=== PATIENT | male | born 1935 | race Caucasian/White ===

== ENCOUNTER → 2018-11-29 | Outpatient (CLI) | payer MEDICARE ==
--- NOTE | 2018-12-01 15:13 | P.ARTDOP ---
Arterial Doppler LOWER EXTREMITY ARTERIAL DOPPLER: DATE OF SERVICE: 11/29/2018 Reason for study: Bilateral leg pain. Doppler waveforms: Multiphasic bilaterally throughout. Pulse volume recording: []. Pressure gradients: Greater than 1 bilaterally. Ankle-brachial indices: None. Toe pressures: [] on the right, [] on the left Impression: Normal study.
== END | disposition home or self-care (01) ==
LOC: RADUSWWP 11:57
PROVIDERS: ATTEND Family Medicine
DX: I70.213 Atherosclerosis of native arteries of extremities with intermittent claudication, bilateral legs (principal)
CPT/HCPCS: 93922

== ENCOUNTER → 2019-02-17 | Outpatient (CLI) | payer MEDICARE ==
--- NOTE | 2019-02-17 14:54 | US ---
EXAMINATION TYPE: US venous doppler duplex LE DATE OF EXAM: 02/17/2019 2:01 PM COMPARISON: NONE CLINICAL HISTORY: R60.0 Edema. Bilateral edema- Patient states it is getting better. No pain at this time. No redness. Patient is no longer on blood thinners. SIDE PERFORMED: Bilateral TECHNIQUE: The lower extremity deep venous system is examined utilizing real time linear array sonog yessenia with graded compression, doppler sonography and color-flow sonography. VESSELS IMAGED: External Iliac Vein (EIV) Common Femoral Vein Deep Femoral Vein Greater Saphenous Vein * Femoral Vein Popliteal Vein Small Saphenous Vein * Proximal Calf Veins (* superficial vessels) Grayscale, color doppler, spectral doppler imaging performed of the deep veins of the lower extremiti es. There is normal flow, compressibility, vascular waveforms. Right Leg: Negative for DVT Left Leg: Negative for DVT IMPRESSION: No sonographic evidence of deep venous thrombosis in either lower extremity.
== END | disposition home or self-care (01) ==
LOC: RADUSWWP 13:21
PROVIDERS: ATTEND Family Medicine
DX: R60.0 Localized edema (principal)
CPT/HCPCS: 93970

== ENCOUNTER 2021-03-14 12:34 | Inpatient (IN) | payer MEDICARE ==
--- NOTE | 2021-03-14 12:53 | ED ---
General Adult HPI - General Stated complaint: Fall, Altered Mental Time Seen by Provider: 03/14/21 12:35 Source: patient, EMS, RN notes reviewed, old records reviewed Mode of arrival: EMS Limitations: altered mental status - History of Present Illness Initial comments: 85-year-old male with altered mental status, fall from bed which occurred at 4 AM this morning. History is obtained from the paramedics. History is limited from the patient who is able to state his name and date of but is unable to give a significant amount of history. Patient is on blood thinners. He had a fall without known head trauma. He complained of some right knee pain. Aside from this the patient has no other complaints. This occurred at 4 AM and he presented for evaluation at approximately 12:30 PM. - Related Data Home Medications Medication Instructions Recorded Confirmed Atorvastatin [Lipitor] 10 mg PO HS 03/14/21 03/14/21 Buprenorphine [Butrans 20 MCG/HOUR] 1 patch TRANSDERM SA 03/14/21 03/14/21 Cholecalciferol [Vitamin D3 (25 50 mcg PO DAILY 03/14/21 03/14/21 Mcg = 1000 Iu)] Cyanocobalamin (Vitamin B-12) 1,000 mcg PO DAILY 03/14/21 03/14/21 [Vitamin B-12] Labetalol [Trandate] 100 mg PO BID 03/14/21 03/14/21 Lisinopril [Zestril] 10 mg PO DAILY 03/14/21 03/14/21 Lotrimin Jock Itch [place] 1 applic TOPICAL DAILY PRN 03/14/21 03/14/21 Naloxone HCl [Narcan] 4 mg NASAL DAILY PRN 03/14/21 03/14/21 Ondansetron [Zofran ODT] 4 mg PO BID PRN 03/14/21 03/14/21 Prostagenix 1 cap PO TID 03/14/21 03/14/21 Rivaroxaban [Xarelto] 2.5 mg PO AC-BID 03/14/21 03/14/21 Tamsulosin HCl [Flomax] 0.8 mg PO HS 03/14/21 03/14/21 cloNIDine HCL 0.1 mg PO AC-BID 03/14/21 03/14/21 oxyCODONE HCL [oxyCODONE HCL (IR)] 20 mg PO QID 03/14/21 03/14/21 Allergies Allergy/AdvReac Type Severity Reaction Status Date / Time No Known Allergies Allergy Verified 03/14/21 17:47 Review of Systems ROS Statement: Those systems with pertinent positive or pertinent negative responses have been documented in the HPI. ROS Other: All systems not noted in ROS Statement are negative. General Exam Limitations: altered mental status General appearance: alert Head exam: Present: atraumatic, normocephalic Eye exam: Present: normal appearance, PERRL ENT exam: Present: mucous membranes dry (Dried blood around the lips.) Neck exam: Present: normal inspection. Absent: tenderness, meningismus Respiratory exam: Present: normal lung sounds bilaterally. Absent: respiratory distress, wheezes Cardiovascular Exam: Present: normal rhythm, tachycardia GI/Abdominal exam: Present: soft. Absent: distended, tenderness, guarding Extremities exam: Present: tenderness (Right knee, some anterior ecchymosis, tenderness to palpation, no gross deformity.), pedal edema Neurological exam: Present: alert, motor sensory deficit (Patient does have some difficulty answering questions, uncertain if this is due to his mental status or expressive aphasia.). Absent: oriented X3 (2) Skin exam: Present: warm, dry, intact. Absent: cyanosis, diaphoretic Course Vital Signs 03/14/21 03/14/21 03/14/21 12:38 15:11 17:00 Temperature 98.9 F Pulse Rate 94 68 94 Respiratory 20 16 18 Rate Blood Pressure 198/112 164/104 205/107 O2 Sat by Pulse 94 L 93 L 92 L Oximetry 03/14/21 17:36 Temperature Pulse Rate 101 H Respiratory 20 Rate Blood Pressure 154/98 O2 Sat by Pulse 96 Oximetry EKG Findings - EKG Comments: EKG Findings:: EKG: Sinus rhythm with PVC, T-wave inversion in V2 and V3, no ST segment elevation, rate of 97, CT interval 126, QRS duration 100, QTC 434. Medical Decision Making - Medical Decision Making 85-year-old male presents status post fall. The exact details are known. The patient himself is alert and oriented 2. He's having some pain in the left hip upon arrival as well as the right knee. Plain films as well as CT imaging of the brain and CT angiography is ordered initially. Patient is a DO NOT RESUSCITATE CT brain negative for intracranial hemorrhage. Accommodation of x-rays and CTs findings significant bony abnormalities including left proximal femur fracture, right tibial plateau fracture, right acetabular fracture. There is rotational deformity on angiography of the neck and week on of the cervical spine is pending. I had discussed these findings with the patient's who is francesco celaya if she would agree with surgery at this time are not. I discussed case at length with Dr. Plasencia and Dr. Hayes covering for orthopedics. Patient's is aware that the patient has multiple injuries in this may be a terminal event for this patient. She agrees to discuss any surgical options with orthopedics tomorrow and is aware that there will be no operative management at this time for the injuries to the right lower extremity. Regarding the patient's laboratory testing does have a leukocytosis with no source infection found at this time. We'll monitor for signs of infection. He has a hypokalemia which is replaced. He has an elevated troponin this will be trended. He is anticoagulated at baseline and has no active chest pain. Both internal medicine and cardiology will be placed on consult for possible surgical clearance. - Lab Data Result diagrams: 03/14/21 12:48 03/14/21 12:48 Lab Results 03/14/21 03/14/21 03/14/21 Range/Units 12:48 12:48 12:48 WBC 22.3 H (3.8-10.6) k/uL RBC 3.43 L (4.30-5.90) m/uL Hgb 11.2 L (13.0-17.5) gm/dL Hct 33.3 L (39.0-53.0) % MCV 97.0 (80.0-100.0) fL MCH 32.6 (25.0-35.0) pg MCHC 33.6 (31.0-37.0) g/dL RDW 13.0 (11.5-15.5) % Plt Count 180 (150-450) k/uL MPV 7.9 Neutrophils % 94 % Lymphocytes % 2 % Monocytes % 3 % Eosinophils % 1 % Basophils % 0 % Neutrophils # 20.9 H (1.3-7.7) k/uL Lymphocytes # 0.4 L (1.0-4.8) k/uL Monocytes # 0.7 (0-1.0) k/uL Eosinophils # 0.2 (0-0.7) k/uL Basophils # 0.0 (0-0.2) k/uL PT 11.9 (9.0-12.0) sec INR 1.1 (<1.2) APTT 24.4 (22.0-30.0) sec Sodium 133 L (137-145) mmol/L Potassium 3.1 L (3.5-5.1) mmol/L Chloride 104 (98-107) mmol/L Carbon Dioxide 22 (22-30) mmol/L Anion Gap 7 mmol/L BUN 16 (9-20) mg/dL Creatinine 0.47 L (0.66-1.25) mg/dL Est GFR (CKD-EPI)AfAm >90 (>60 ml/min/1.73 sqM) Est GFR (CKD-EPI)NonAf >90 (>60 ml/min/1.73 sqM) Glucose 176 H (74-99) mg/dL Calcium 8.8 (8.4-10.2) mg/dL Total Bilirubin 1.5 H (0.2-1.3) mg/dL AST 37 (17-59) U/L ALT 28 (4-49) U/L Alkaline Phosphatase 82 (38-126) U/L Creatine Kinase 294 H (55-170) U/L Troponin I (0.000-0.034) ng/mL Total Protein 5.8 L (6.3-8.2) g/dL Albumin 3.3 L (3.5-5.0) g/dL 03/14/21 Range/Units 12:48 WBC (3.8-10.6) k/uL RBC (4.30-5.90) m/uL Hgb (13.0-17.5) gm/dL Hct (39.0-53.0) % MCV (80.0-100.0) fL MCH (25.0-35.0) pg MCHC (31.0-37.0) g/dL RDW (11.5-15.5) % Plt Count (150-450) k/uL MPV Neutrophils % % Lymphocytes % % Monocytes % % Eosinophils % % Basophils % % Neutrophils # (1.3-7.7) k/uL Lymphocytes # (1.0-4.8) k/uL Monocytes # (0-1.0) k/uL Eosinophils # (0-0.7) k/uL Basophils # (0-0.2) k/uL PT (9.0-12.0) sec INR (<1.2) APTT (22.0-30.0) sec Sodium (137-145) mmol/L Potassium (3.5-5.1) mmol/L Chloride (98-107) mmol/L Carbon Dioxide (22-30) mmol/L Anion Gap mmol/L BUN (9-20) mg/dL Creatinine (0.66-1.25) mg/dL Est GFR (CKD-EPI)AfAm (>60 ml/min/1.73 sqM) Est GFR (CKD-EPI)NonAf (>60 ml/min/1.73 sqM) Glucose (74-99) mg/dL Calcium (8.4-10.2) mg/dL Total Bilirubin (0.2-1.3) mg/dL AST (17-59) U/L ALT (4-49) U/L Alkaline Phosphatase (38-126) U/L Creatine Kinase (55-170) U/L Troponin I 1.060 H* (0.000-0.034) ng/mL Total Protein (6.3-8.2) g/dL Albumin (3.5-5.0) g/dL Critical Care Time Critical Care Time: Yes Total Critical Care Time: 35 Disposition Clinical Impression: Fall, AMS (altered mental status), Elevated troponin, Acetabular fracture, Hip fracture, Tibial plateau fracture, right Disposition: ADMITTED IP TO THIS [facility] Condition: Stable Is patient prescribed a controlled substance at d/c from ED?: No Referrals: Jose Irwin MD [Primary Care Provider] - 1-2 days Decision to Admit Reason: Admit from EC Decision Date: 03/14/21 Decision Time: 18:36
[2021-03-14 13:02] LABS: Basophils % (A) 0 %; Eosinophils # (A) 0.2 k/uL (0-0.7); Eosinophils % (A) 1 %; HCT 33.3 % (39.0-53.0); HGB 11.2 gm/dL (13.0-17.5); Lymphocytes # (A) 0.4 k/uL (1.0-4.8); Lymphocytes % (A) 2 %; MCH 32.6 pg (25.0-35.0); MCHC 33.6 g/dL (31.0-37.0); Mean Platelet Volume 7.9; Monocytes # (A) 0.7 k/uL (0-1.0); Monocytes % (A) 3 %; Neutrophils # (A) 20.9 k/uL (1.3-7.7); Neutrophils % (A) 94 %; Platelet Count 180 k/uL (150-450); RBC 3.43 m/uL (4.30-5.90); WBC 22.3 k/uL (3.8-10.6)
[2021-03-14 13:15] LABS: ALT 28 U/L (4-49); AST 37 U/L (17-59); African American GFR (CKD) >90 (>60 ml/min/1.73 sqM); Albumin 3.3 g/dL (3.5-5.0); Alkaline Phosphatase 82 U/L (38-126); Anion Gap 7 mmol/L; Blood Urea Nitrogen 16 mg/dL (9-20); Calcium 8.8 mg/dL (8.4-10.2); Carbon Dioxide 22 mmol/L (22-30); Chloride 104 mmol/L (98-107); Creatine Kinase 294 U/L (55-170); Glucose 176 mg/dL (74-99); Non-African American GFR(CKD) >90 (>60 ml/min/1.73 sqM); Potassium 3.1 mmol/L (3.5-5.1); Sodium 133 mmol/L (137-145); Total Bilirubin 1.5 mg/dL (0.2-1.3); Total Protein 5.8 g/dL (6.3-8.2)
[2021-03-14 13:34] LABS: INR 1.1 (<1.2); Partial Thromboplastin Time 24.4 sec (22.0-30.0); Prothrombin Time 11.9 sec (9.0-12.0)
[2021-03-14] MEDS ORDERED: SODIUM CHLORIDE 0.9% 500 ML 500 ML IV ONE (14:32)
[2021-03-14] MEDS ORDERED: HYDROmorphone 0.5 MG/0.5 ML SYRINGE IVP STA ×2 (14:32→15:55)
--- NOTE | 2021-03-14 14:56 | XR ---
EXAMINATION TYPE: XR chest 1V portable DATE OF EXAM: 03/14/2021 COMPARISON: NONE HISTORY: 85 years Male. STUDY INDICATION GIVEN: altered mental status . TECHNIQUE: AP semiupright chest radiograph IMPRESSION: There are patchy bibasilar right greater than left opacities which may be reflective of atelectasis o r multifocal pneumonia. There is a 1.5 cm soft tissue density in the right upper hemithorax concerning for lung nodule. There is a moderate-sized right pleural effusion. No left-sided pleural effusion. No pneumothorax. There is mild cardiomegaly and mild pulmonary vascular congestion/edema. Generalized osteopenia is noted.
--- NOTE | 2021-03-14 15:00 | XR ---
EXAMINATION TYPE: XR pelvis AP view DATE OF EXAM: 03/14/2021 COMPARISON: NONE HISTORY: 85 years Male. STUDY INDICATION GIVEN: fall . TECHNIQUE: Single frontal radiograph of the pelvis IMPRESSION: There is an acute displaced fracture of the proximal left femur with proximal overlap. Severe osteopenia which limits evaluation for nondisplaced fracture. Irregularity involving the right acetabulum/inferior right pubic ramus, could be related to projectio n cannot exclude nondisplaced fracture. No hip joint dislocation. Residual contrast seen in the right ureter.
--- NOTE | 2021-03-14 15:03 | XR ---
EXAMINATION TYPE: XR knee limited RT DATE OF EXAM: 03/14/2021 COMPARISON: NONE HISTORY: 85 years Male. STUDY INDICATION GIVEN: fall . TECHNIQUE: Frontal and lateral radiographs of the right knee IMPRESSION: Advanced osteopenia limits evaluation for nondisplaced fracture. The positioning of the knee joint is also limiting factor. There is an apparent fracture involving the proximal fibular shaft. Irregularity of the lateral tibial plateau is noted. Cannot exclude fracture. Advanced osteoarthrosis is seen. There is a small knee joint effusion and diffuse soft tissue swelling of the knee. Osseous fragment in the posterior aspect of the knee joint could represent a loose body.
--- NOTE | 2021-03-14 15:04 | XR ---
EXAMINATION TYPE: XR Hip Limited LT DATE OF EXAM: 03/14/2021 COMPARISON: NONE HISTORY: 85 years Male. STUDY INDICATION GIVEN: fall . TECHNIQUE: AP radiograph of the left hip joint IMPRESSION: Acute slightly comminuted fracture of the proximal left femur. The distal fragment is superiorly disl ocated. Mild overlying soft tissue swelling. No hip joint dislocation. Mild left hip joint space narr owing. Advanced osteopenia.
--- NOTE | 2021-03-14 16:41 | XR ---
EXAMINATION TYPE: XR Hip Complete LT DATE OF EXAM: 03/14/2021 COMPARISON: Left hip and pelvic radiographs performed on the same day HISTORY: 85 years Male. STUDY INDICATION GIVEN: fALL . TECHNIQUE: AP and crosstable lateral radiographs of the left hip joint IMPRESSION: Acute slightly comminuted fracture of the proximal left femur. The distal femur is displaced proximal ly and laterally. Significant soft tissue swelling is seen around the left proximal hip joint. Osseou s structures are significantly osteopenic. Contrast is seen in the urinary bladder.
[2021-03-14] MEDS ORDERED: hydrALAZINE HCL 20 MG/ML 1 ML VIAL IVP STA (16:57)
--- NOTE | 2021-03-14 16:59 | CT ---
EXAMINATION TYPE: CT brain wo con for TPA DATE OF EXAM: 03/14/2021 COMPARISON: None HISTORY: AMS TECHNIQUE: CT scan of the head without contrast CT DLP: 1103 mGycm Automated exposure control for dose reduction was used. FINDINGS: No acute intracranial hemorrhage, midline shift or mass effect. Quinn-white matter differentiation is preserved. Linear area of low attenuation in the right frontal lobe favored to be related to artifact from adjac ent bone. Patchy low-attenuation the deep white matter and periventricular region likely on the basis of chroni c microvascular ischemic changes. Prominence of the CSF spaces and ventricles likely related to brain volume loss. No air-fluid levels seen in the paranasal sinuses or mastoid air cells. No acute osseous, orbital or soft tissue abnormality seen. IMPRESSION: NO ACUTE INTRACRANIAL HEMORRHAGE MIDLINE SHIFT OR MASS EFFECT. LINEAR AREA OF LOW-ATTENUATION THE RIGHT FRONTAL LOBE FAVORED TO BE RELATED TO ARTIFACT FROM ADJACENT BONE. CHRONIC MICROVASCULAR ISCHEMIC CHANGES AND BRAIN VOLUME.
--- NOTE | 2021-03-14 17:40 | CT ---
EXAMINATION TYPE: CT angio head neck DATE OF EXAM: 03/14/2021 HISTORY: AMS COMPARISON: None CT DLP: 456.2 mGycm. Automated Exposure Control for Dose Reduction was Utilized. TECHNIQUE: CTA scan of the neck is performed with IV Contrast, patient injected with 65 mL of Isovue 370, axial images are obtained, coronal and sagittal reformatted images are reviewed. 3D reconstruct ed images are created on an independent workstation and reviewed. FINDINGS: Carotid/Vascular Structures: Atherosclerotic calcifications are seen in the arch of the aorta. Atherosclerotic plaques are seen a t the region of the bilateral subclavian arteries. There is mild bilateral narrowing of the bilateral carotid bifurcation secondary to calcific plaques. The external carotid arteries are patent. Renal c arotid arteries are patent. There is a dominant right vertebral artery. Both vertebral arteries are patent. The basilar artery is patent. ACAs are patent. M1 segments of both MCAs are patent. M2 and M3 segments appear symmetric. There is mild narrowing of the distal left M1 segment. There is mild narrowing of the proximal right M1 segment Both healthcare consulting manager are patent. Right [employer] has a origin. Deep venous structures of the brain are patent. No cervical lymphadenopathy seen. Airways are symmetric. There is a centrally calcified nodule measuring centimeters. There is trace right effusion loculated in the right fissure. There is a rotation deformity at C1-2. There are degenerative changes in the cervical spine. Evaluation of the cervical spine suboptimal. IMPRESSION: 1. No vascular occlusion aneurysm or dissection seen. Clinical correlation with symptomatology recomm ended. 2. Mild narrowing of the bilateral M1 segments of the MCA. 3. Mild narrowing at the bilateral common carotid bifurcation. 4. C1 2 rotational deformity may be seen with rotatory subluxation. MRI of the cervical spine may be beneficial to rule out ligamentous injury. 5. Cannot exclude C-spine fracture due to technique. 6. Centrally calcified 1.2 cm nodule in the right upper lobe. 7. Trace right pleural effusion. 8. Focal area of low attenuation in the right frontal lobe again seen may be related to artifact vers us chronic microvascular ischemic changes. Clinical correlation recommended NASCET criteria was used in interpretation of this exam?
--- NOTE | 2021-03-14 17:56 | CT ---
EXAMINATION TYPE: CT knee RT wo con DATE OF EXAM: 03/14/2021 COMPARISON: None HISTORY: Fall. TECHNIQUE: CT scan of the right knee without contrast. Three-D reconstruction obtained CT DLP: 147.8 mGycm Automated exposure control for dose reduction was used. FINDINGS: There is advanced osteopenia. There is an acute depression fracture of the lateral tibial plateau the into the knee joint. Fracture fragment is slightly displaced laterally. There is an acute fracture of the superior aspect of the fibula which does not extend into the tibia fibular joint. Tricompartmental osteoarthrosis air severe. There is a large knee joint effusion which contains a few droplets of fat.. There are loose bodies in the posterior knee joint. Diffuse soft tissue swelling around the knee joint. There is chondrocalcinosis in the knee joint. IMPRESSION: 1. ACUTE DEPRESSION FRACTURE OF THE LATERAL TIBIAL PLATEAU WITH SLIGHT LATERAL DISPLACEMENT. 2. ACUTE FRACTURE OF THE PROXIMAL FIBULA WITHOUT EXTENSION INTO THE TIBIOFIBULAR JOINT. 3. FAT-CONTAINING LARGE KNEE JOINT EFFUSION CONSISTENT WITH INTRA-ARTICULAR EXTENSION OF TIBIAL PLATE AU FRACTURE. 4. ADVANCED TRICOMPARTMENTAL OSTEOARTHROSIS. 5. DIFFUSE SOFT TISSUE SWELLING AROUND THE KNEE JOINT.
[2021-03-14] MEDS ORDERED: ACETAMINOPHEN TAB 325 MG TAB PO PRN (17:58)
[2021-03-14] MEDS ORDERED: NALOXONE 0.4 MG/ML 1 ML VIAL IV PRN (17:58)
--- NOTE | 2021-03-14 18:03 | CT ---
EXAMINATION TYPE: CT hip LT wo con DATE OF EXAM: 03/14/2021 COMPARISON: None HISTORY: Fall. TECHNIQUE: CT scan of the left hip joint without contrast CT DLP: 448 mGycm Automated exposure control for dose reduction was used. FINDINGS: There is advanced osteopenia. There is an acute left femoral neck comminuted fracture. The distal femur is dislocated anteriorly an d superiorly and overlaps the proximal left femur. Smaller osseous fragments are seen anteriorly and medially to the femoral neck. The left hip joint is intact. There is an acute slightly displaced comminuted fracture of the right acetabulum. Fracture line exten ds into the right ischium. The pubic symphysis is maintained. Fluid is seen in the right side of the pelvis adjacent to the right acetabulum. Right femoral head is situated within the right acetabulum. Soft tissue swelling in the proximal left thigh. Residual contrast is seen in the urinary bladder. There is large amount of stool in the sigmoid and r ectum. IMPRESSION: 1 ACUTE DISPLACED COMMINUTED LEFT FEMORAL NECK FRACTURE. 2. ACUTE SLIGHTLY DISPLACED COMMINUTED FRACTURE OF THE RIGHT ACETABULUM EXTENDING SLIGHTLY INTO THE R IGHT ISCHIUM. 3. NO HIP JOINT DISLOCATION. 4. RIGHT LOWER PELVIC FLUID IS SEEN IN ASSOCIATION WITH A RIGHT ACETABULAR FRACTURE.
--- NOTE | 2021-03-14 19:02 | CT ---
EXAMINATION TYPE: CT cervical spine w con DATE OF EXAM: 03/14/2021 COMPARISON: None HISTORY: Fall TECHNIQUE: CT scan of the cervical spine performed without contrast Automated exposure control for dose reduction was used. FINDINGS: Advanced bony demineralization is seen throughout the osseous structures. There is mild rotational deformity at the C1 -2 access. Left lateral process of C2 is displaced later ally by about 8 mm and anteriorly by about 5 mm. A compression fracture deformity is seen in the upper endplate of T6. No retropulsed fragments seen. The atlantooccipital joint is maintained as seen on the noncontrast CT head performed on the same day but not included on these image reconstructions. Multilevel narrowing of the intervertebral spaces, disc osteophyte complexes and uncovertebral facet joint arthropathy are noted throughout the cervical and upper thoracic spine. IMPRESSION: 1. C1-2 ROTATION DEFORMITY AND DISPLACEMENT OF THE LEFT LATERAL PROCESS OF C2 LATERALLY BY 8 MM AND A NTERIORLY BY 5 MM. CONCERNING FOR LIGAMENTOUS INJURY. 2. COMPRESSION FRACTURE DEFORMITY OF T6.
[2021-03-14] MEDS: POTASSIUM CHLORIDE 10 MEQ in WATER FOR INJECTION 1 100ML.BAG IVPB SCH ×4 (19:19→22:45)
--- NOTE | 2021-03-15 00:02 | P.CONS ---
History of Present Illness - Reason for Consult Consult date: 03/14/21 Medical evaluation Requesting physician: John Hayes - Chief Complaint Fall - History of Present Illness 85-year-old male with multiple comorbidities however patient is currently confused unable to provide any meaningful history History obtained by reviewing records from the ER seems like patient has sustained a fall off his bed this morning, resulting in pain and aches over his hip and knee for which she was brought to the hospital by EMS for evaluation no report of head injury however patient is on blood thinners and antiplatelets. No further history is obtainable at this time CT of the brain Imaging in the ED showed no acute intracranial pathology. Otherwise imaging did reveal right tibial plateau fracture, right acetabular fracture, left hip fracture Family made the patient DO NOT RESUSCITATE and they are aware that patient is having multiple injuries and he might not be a good surgical candidate will await further recommendations from surgical team Patient also found to have elevated troponin C denies any chest pain or trouble breathing patient does have cardiac history. Again patient unable to provide any meaningful history at this time Review of Systems ROS unobtainable: due to mental status Past Medical History Past Medical History: Unable to Obtain Past Surgical History: Unable to Obtain Past Anesthesia/Blood Transfusion Reactions: Unable to Obtain Past Psychological History: Unable to Obtain - Past Family History Family Family Medical History: Unable to Obtain Medications and Allergies Home Medications Medication Instructions Recorded Confirmed Type Atorvastatin [Lipitor] 10 mg PO HS 03/14/21 03/14/21 History Buprenorphine [Butrans 20 MCG/HOUR] 1 patch TRANSDERM SA 03/14/21 03/14/21 History Cholecalciferol [Vitamin D3 (25 50 mcg PO DAILY 03/14/21 03/14/21 History Mcg = 1000 Iu)] Cyanocobalamin (Vitamin B-12) 1,000 mcg PO DAILY 03/14/21 03/14/21 History [Vitamin B-12] Labetalol [Trandate] 100 mg PO BID 03/14/21 03/14/21 History Lisinopril [Zestril] 10 mg PO DAILY 03/14/21 03/14/21 History Lotrimin Jock Itch [place] 1 applic TOPICAL DAILY PRN 03/14/21 03/14/21 History Naloxone HCl [Narcan] 4 mg NASAL DAILY PRN 03/14/21 03/14/21 History Ondansetron [Zofran ODT] 4 mg PO BID PRN 03/14/21 03/14/21 History Prostagenix 1 cap PO TID 03/14/21 03/14/21 History Rivaroxaban [Xarelto] 2.5 mg PO AC-BID 03/14/21 03/14/21 History Tamsulosin HCl [Flomax] 0.8 mg PO HS 03/14/21 03/14/21 History cloNIDine HCL 0.1 mg PO AC-BID 03/14/21 03/14/21 History oxyCODONE HCL [oxyCODONE HCL (IR)] 20 mg PO QID 03/14/21 03/14/21 History Allergies Allergy/AdvReac Type Severity Reaction Status Date / Time No Known Allergies Allergy Verified 03/14/21 17:47 Physical Exam Vitals: Vital Signs Temp Pulse Resp BP Pulse Ox 03/14/21 23:06 107 H 16 168/99 96 03/14/21 20:12 105 H 17 154/98 100 03/14/21 17:36 101 H 20 154/98 96 03/14/21 17:00 94 18 205/107 92 L 03/14/21 15:11 68 16 164/104 93 L 03/14/21 12:38 98.9 F 94 20 198/112 94 L Intake and Output 03/14/21 03/14/21 03/15/21 14:59 22:59 06:59 Output Total 300 Balance -300 Output: Urine 300 Uretheral (Levy) 300 Other: Weight 68.039 kg Constitutional: No acute distress, cooperative, confused Eyes: Anicteric sclerae, moist conjunctiva, Pupils equal round reactive to light ENMT: Bruising over the left forehead dried blood around lips Oropharynx clear, no erythema, or exudates Neck: Supple, no masses, or JVD No carotid bruits No thyromegaly Lungs: Clear to auscultation Clear to percussion Normal respiratory effort, no accessory muscle use Cardiovascular: Heart regular in rate and rhythm, No murmurs, gallops, or rubs No peripheral edema Abdominal: Soft Nontender, no guarding, rebound or rigidity Abdomen moving with respiration Normoactive bowel sounds No hepatomegaly, No splenomegaly No palpable mass No abdominal wall hernia noted Levy catheter in place with blood tinged urine Skin: Bruising and ecchymosis over the left upper chest anteriorly, no open wounds or cuts Extremities: Internally rotated left lower extremity No digital cyanosis No clubbing Pedal pulses intact and symmetrical Radial pulses intact and symmetrical No calf tenderness Psychiatric: Alert and oriented to person only Patient seems to be confused unable to provide any meaningful history Neuro Muscles Strength 4/5 in bilateral upper extremities, he did not move his lower extremities possibly due to pain secondary to fractures Sensation to light touch grossly present throughout Unable to perform sterile cranial nerve exam as patient unable to cooperate with instructions Lymphatics: no palpable cervical or supraclavicular , or inguinal lymph nodes Results CBC & Chem 7: 03/14/21 12:48 03/14/21 12:48 Labs: Abnormal Lab Results - Last 24 Hours (Table) 03/14/21 03/14/21 03/14/21 Range/Units 12:48 12:48 12:48 WBC 22.3 H (3.8-10.6) k/uL RBC 3.43 L (4.30-5.90) m/uL Hgb 11.2 L (13.0-17.5) gm/dL Hct 33.3 L (39.0-53.0) % Neutrophils # 20.9 H (1.3-7.7) k/uL Lymphocytes # 0.4 L (1.0-4.8) k/uL Sodium 133 L (137-145) mmol/L Potassium 3.1 L (3.5-5.1) mmol/L Creatinine 0.47 L (0.66-1.25) mg/dL Glucose 176 H (74-99) mg/dL Total Bilirubin 1.5 H (0.2-1.3) mg/dL Creatine Kinase 294 H (55-170) U/L Troponin I 1.060 H* (0.000-0.034) ng/mL Total Protein 5.8 L (6.3-8.2) g/dL Albumin 3.3 L (3.5-5.0) g/dL 03/14/21 Range/Units 21:31 WBC (3.8-10.6) k/uL RBC (4.30-5.90) m/uL Hgb (13.0-17.5) gm/dL Hct (39.0-53.0) % Neutrophils # (1.3-7.7) k/uL Lymphocytes # (1.0-4.8) k/uL Sodium (137-145) mmol/L Potassium (3.5-5.1) mmol/L Creatinine (0.66-1.25) mg/dL Glucose (74-99) mg/dL Total Bilirubin (0.2-1.3) mg/dL Creatine Kinase (55-170) U/L Troponin I 1.100 H* (0.000-0.034) ng/mL Total Protein (6.3-8.2) g/dL Albumin (3.5-5.0) g/dL Assessment and Plan Assessment: Patient unable to provide any meaningful history or past medical history however looking at his list of medication he seems to have hypertension and hyperlipidemia with possible coronary artery disease Elevated troponins Patient denies chest pain or trouble breathing Continue to trend troponins Continue home cardiac meds Patient on low-dose Xarelto for unknown reason , continue Hypokalemia Replace and follow-up levels Follow-up magnesium Leukocytosis most likely reactive secondary to multiple fractures Continue to monitor vital signs for any signs of fever No focal infection at this time Multiple fractures secondary to fall Management per primary team Fall precautions Imaging reviewed Patient is no code Patient admitted after sustaining a fall at home resulting in pain over his lower extremities in the ED he was found to have multiple fractures admitted to surgery for evaluation medicine consulted for medical management Family reported falls in the past and due to multiple injuries and advanced age they might lean to work terminal measures and avoid surgery this will be based upon discussion with the surgical team and medical team in the morning
[2021-03-15] MEDS: HYDROmorphone 0.5 MG/0.5 ML SYRINGE IVP PRN ×2 (00:19→15:51)
[2021-03-15] MEDS: LABETALOL 100 MG TAB PO SCH ×2 (00:39→13:57)
[2021-03-15] MEDS: RIVAROXABAN 2.5 MG TABLET PO SCH ×2 (00:39→09:57)
[2021-03-15 03:21] VITALS: RESP 17
[2021-03-15 07:29] LABS: Basophils % (A) 0 %; Eosinophils # (A) 0.1 k/uL (0-0.7); Eosinophils % (A) 0 %; HCT 31.4 % (39.0-53.0); HGB 10.4 gm/dL (13.0-17.5); Lymphocytes # (A) 1.1 k/uL (1.0-4.8); Lymphocytes % (A) 6 %; MCH 32.8 pg (25.0-35.0); MCV 99.6 fL (80.0-100.0); Mean Platelet Volume 8.8; Monocytes # (A) 0.7 k/uL (0-1.0); Monocytes % (A) 4 %; Neutrophils # (A) 15.2 k/uL (1.3-7.7); Neutrophils % (A) 89 %; Platelet Count 122 k/uL (150-450); RBC 3.16 m/uL (4.30-5.90); RDW 13.3 % (11.5-15.5); WBC 17.1 k/uL (3.8-10.6)
[2021-03-15] MEDS ORDERED: cloNIDine HCL 0.1 MG TAB PO SCH (07:30)
[2021-03-15 07:46] LABS: African American GFR (CKD) >90 (>60 ml/min/1.73 sqM); Anion Gap 7 mmol/L; Blood Urea Nitrogen 22 mg/dL (9-20); Calcium 9.2 mg/dL (8.4-10.2); Carbon Dioxide 22 mmol/L (22-30); Chloride 106 mmol/L (98-107); Glucose 139 mg/dL (74-99); Magnesium 2.2 mg/dL (1.6-2.3); Non-African American GFR(CKD) 89 (>60 ml/min/1.73 sqM); Potassium 3.4 mmol/L (3.5-5.1); Sodium 135 mmol/L (137-145)
[2021-03-15] MEDS ORDERED: lisinopriL 10 MG TAB PO SCH (09:00)
[2021-03-15] MEDS ORDERED: ASPIRIN 81 MG PO SCH (09:00)
--- NOTE | 2021-03-15 10:00 | ECHOF ---
Referral Reason:elevated troponin, LV function MEASUREMENTS -------- HEIGHT: 177.8 cm WEIGHT: 63.5 kg BP: RVIDd: 2.8 cm (< 3.3) IVSd: 1.6 cm (0.6 - 1.1) LVIDd: 4.0 cm (3.9 - 5.3) LVPWd: 1.4 cm (0.6 - 1.1) IVSs: 1.9 cm LVIDs: 3.2 cm LVPWs: 1.3 cm LAESV Index (A-L): 30.44 ml/m Ao Diam: 3.4 cm (2.0 - 3.7) AV Cusp: 1.4 cm (1.5 - 2.6) AR PHT: 408 ms RAP: 5.00 mmHg RVSP: 34.46 mmHg FINDINGS -------- This was a technically adequate study. Pt unable to turn due to hip fx. The left ventricular size is normal. There is moderate concentric left ventricular hypertrophy. O verall left ventricular systolic function is moderately impaired with, an EF between 35 - 40 %. Api koko inferior LV wall motion is hypokinetic. Apical septum LV wall motion is akinetic. The right ventricle is normal in size. LA is midly dilated 29-33ml/m2. The right atrial size is normal. Interatrial and interventricular septum intact. The aortic valve was not well visualized. There is mild aortic regurgitation. There is no evidenc e of aortic stenosis. Mild mitral regurgitation is present. Mild tricuspid regurgitation present. There is no evidence of pulmonary hypertension. The right v entricular systolic pressure, as measured by Doppler, is 34.46mmHg. The pulmonic valve was not well visualized. The aortic root size is normal. IVC Not well visulized. There is no pericardial effusion. CONCLUSIONS -------- 1. The left ventricular size is normal. 2. There is moderate concentric left ventricular hypertrophy. 3. Overall left ventricular systolic function is moderately impaired with, an EF between 35 - 40 %. 4. Apical inferior LV wall motion is hypokinetic. 5. Apical septum LV wall motion is akinetic. 6. LA is midly dilated 29-33ml/m2. 7. There is mild aortic regurgitation. 8. Mild mitral regurgitation is present. 9. Mild tricuspid regurgitation present. RATE ENGINEER: Joaquina Cabrera RDCS
--- NOTE | 2021-03-15 11:52 | P.HPOR ---
History of Present Illness H&P Date: 03/15/21 This patient is an 85-year-old male past medical history of hypertension, hyperlipidemia, CAD, who takes Xarelto that presented to [facility] emergency department on 03/14/20 via EMS with complaints of a fall at home around 4 AM. Per ER note patient was quite confused and unable to provide hi story upon presentation. X-rays in the emergency department revealed a left intertrochanteric hip fracture, a right mildly displaced acetabular fracture, and a right lateral tibial plateau fracture. A brain CT was also obtained that show no acute changes. CT of the cervical spine revealed C1-2 rotation deformity, compression fracture of T6. Patient's troponins were also elevated upon presentation. Patient was admitted under the care of Dr. Plasencia who was sterilisation technician at that time of patient presentation, with care taken over by Dr. Hayes, with a consult placed to internal medicine for medical management. Patient is seen and examined bedside with Dr. Hayes in the emergency department. His is bedside. Patient states his pain is currently well- controlled while laying in bed. Patient and his both agree the patient was not very active or ambulatory over the past few months. He does not complain of neck pain at this time. No additional complaints. Vital signs stable. Past Medical History Past Medical History: Unable to Obtain Past Surgical History: Unable to Obtain Past Anesthesia/Blood Transfusion Reactions: Unable to Obtain Past Psychological History: Unable to Obtain - Past Family History Family Family Medical History: Unable to Obtain Medications and Allergies Home Medications Medication Instructions Recorded Confirmed Type Atorvastatin [Lipitor] 10 mg PO HS 03/14/21 03/14/21 History Buprenorphine [Butrans 20 MCG/HOUR] 1 patch TRANSDERM SA 03/14/21 03/14/21 History Cholecalciferol [Vitamin D3 (25 50 mcg PO DAILY 03/14/21 03/14/21 History Mcg = 1000 Iu)] Cyanocobalamin (Vitamin B-12) 1,000 mcg PO DAILY 03/14/21 03/14/21 History [Vitamin B-12] Labetalol [Trandate] 100 mg PO BID 03/14/21 03/14/21 History Lisinopril [Zestril] 10 mg PO DAILY 03/14/21 03/14/21 History Lotrimin Jock Itch [place] 1 applic TOPICAL DAILY PRN 03/14/21 03/14/21 History Naloxone HCl [Narcan] 4 mg NASAL DAILY PRN 03/14/21 03/14/21 History Ondansetron [Zofran ODT] 4 mg PO BID PRN 03/14/21 03/14/21 History Prostagenix 1 cap PO TID 03/14/21 03/14/21 History Rivaroxaban [Xarelto] 2.5 mg PO AC-BID 03/14/21 03/14/21 History Tamsulosin HCl [Flomax] 0.8 mg PO HS 03/14/21 03/14/21 History cloNIDine HCL 0.1 mg PO AC-BID 03/14/21 03/14/21 History oxyCODONE HCL [oxyCODONE HCL (IR)] 20 mg PO QID 03/14/21 03/14/21 History Allergies Allergy/AdvReac Type Severity Reaction Status Date / Time No Known Allergies Allergy Verified 03/14/21 17:47 Physical Examination On examination, the patient is sitting up in bed in no apparent distress. He is alert and answers questions appropriately. His is bedside. His head appears normocephalic and atraumatic. His breathing appears nonlabored. There are no obvious deformities or signs of trauma of the bilateral upper e xtremities. [id number] or palpation of the bilateral hips is not performed at this time to present patient's comfort. On inspection of the right knee, there is diffuse swelling. No open wounds or lacerations. Results Left hip computed tomography scan 03/14/21: Displaced intertrochanteric left hip fracture, as well as femoral neck fracture. There is also a slightly displaced right acetabular fracture. Right knee computed tomography scan 03/14/21: Right lateral tibial plateau fracture with slight lateral displacement. Acute fracture of the proximal fibul a. Large knee joint fusion. - Labs Labs: Abnormal Lab Results - Last 24 Hours (Table) 03/14/21 03/14/21 03/14/21 Range/Units 12:48 12:48 12:48 WBC 22.3 H (3.8-10.6) k/uL RBC 3.43 L (4.30-5.90) m/uL Hgb 11.2 L (13.0-17.5) gm/dL Hct 33.3 L (39.0-53.0) % Plt Count (150-450) k/uL Neutrophils # 20.9 H (1.3-7.7) k/uL Lymphocytes # 0.4 L (1.0-4.8) k/uL Sodium 133 L (137-145) mmol/L Potassium 3.1 L (3.5-5.1) mmol/L BUN (9-20) mg/dL Creatinine 0.47 L (0.66-1.25) mg/dL Glucose 176 H (74-99) mg/dL Total Bilirubin 1.5 H (0.2-1.3) mg/dL Creatine Kinase 294 H (55-170) U/L Troponin I 1.060 H* (0.000-0.034) ng/mL Total Protein 5.8 L (6.3-8.2) g/dL Albumin 3.3 L (3.5-5.0) g/dL 03/14/21 03/15/21 03/15/21 Range/Units 21:31 00:00 07:13 WBC 17.1 H (3.8-10.6) k/uL RBC 3.16 L (4.30-5.90) m/uL Hgb 10.4 L (13.0-17.5) gm/dL Hct 31.4 L (39.0-53.0) % Plt Count 122 L (150-450) k/uL Neutrophils # 15.2 H (1.3-7.7) k/uL Lymphocytes # (1.0-4.8) k/uL Sodium (137-145) mmol/L Potassium (3.5-5.1) mmol/L BUN (9-20) mg/dL Creatinine (0.66-1.25) mg/dL Glucose (74-99) mg/dL Total Bilirubin (0.2-1.3) mg/dL Creatine Kinase (55-170) U/L Troponin I 1.100 H* 1.120 H* (0.000-0.034) ng/mL Total Protein (6.3-8.2) g/dL Albumin (3.5-5.0) g/dL 03/15/21 03/15/21 Range/Units 07:13 07:13 WBC (3.8-10.6) k/uL RBC (4.30-5.90) m/uL Hgb (13.0-17.5) gm/dL Hct (39.0-53.0) % Plt Count (150-450) k/uL Neutrophils # (1.3-7.7) k/uL Lymphocytes # (1.0-4.8) k/uL Sodium 135 L (137-145) mmol/L Potassium 3.4 L (3.5-5.1) mmol/L BUN 22 H (9-20) mg/dL Creatinine 0.63 L (0.66-1.25) mg/dL Glucose 139 H (74-99) mg/dL Total Bilirubin (0.2-1.3) mg/dL Creatine Kinase 372 H (55-170) U/L Troponin I (0.000-0.034) ng/mL Total Protein (6.3-8.2) g/dL Albumin (3.5-5.0) g/dL H & H 03/14/21 03/15/21 Range/Units 12:48 07:13 Hgb 11.2 L 10.4 L (13.0-17.5) gm/dL Hct 33.3 L 31.4 L (39.0-53.0) % Coagulation 03/14/21 Range/Units 12:48 INR 1.1 (<1.2) Result Diagrams: 03/15/21 07:13 03/15/21 07:13 Assessment and Plan Assessment: Left intertrochanteric hip fracture, as well as left femoral neck fracture Right lateral tibial plateau fracture, right knee Mildly displaced right acetabular fracture Plan: - The clinical and imaging findings were discussed in detail with the patient and his , with Dr. Hayes. The risks of operative, as well as the risks of nonoperative treatment, were discussed in detail. The patient and his would like to consider nonoperative treatment at this time for his multiple fractures. We discussed the patient and his family may like to consider comfort care moving forward. Patient and his verbalized understanding with the risk, as well as the severity of his fractures. - Patient was also discussed with Dr. Billingsley. Patient will be transferred to Dr. Billingsley as admitting provider for medical care. - Dr. Penaloza has been consulted to evaluate patient's C-spine. - Patient should remain strictly non-weight bearing on his bilateral lower extremities. Pain management as needed. - We will follow the patient very closely and make recommendations as needed pending his clinical course. No surgery is planned at this time.
--- NOTE | 2021-03-15 12:02 | P.CRDCN ---
History of Present Illness History of present illness: This is a 85 year old male with a past medical history of hypertension, hyperlipidemia. He states he does not see a nuclear medicine technician. Patient is unable to give a accurate medical history. He is unsure why he is on Xarelto. He is alert, oriented to person and place, he knows his 's name, unclear of the year or medical situation. He presents to the hospital after a fall at home with multiple fractures. He is unable to tell me what happened at home. We are seeing the patient for elevated troponin. He denies any chest pain or discomfort recently or currently. He denies shortness of breath, palpitations, lightheadedness, dizziness, syncope or near syncope. He denies history of CAD, OH, or Stroke. DIAGNOSTICS EKG reveals sinus rhythm HR 97, Twave inversions in leads III, aVF, V2-V4. PVC, No Prior EKG to compare Telemetry tracings indicate sinus mechanism HR 90s Laboratory reviewed, troponin 1.06, 1.1, 1.12, WBC 17.1, hemoglobin 10, platelets 122, sodium 135, potassium 3.4, BUN 22, serum crit 0.6, magnesium 2.2, albumin 3.3, total bilirubin 1.5, creatine kinase 2072 Current home cardiac medications include atorvastatin 10 mg nightly, labetalol 100 mg twice a day, lisinopril 10 mg daily, clonidine 0.1 mg twice a day, Xarelto 2.5 mg twice a day REVIEW OF SYSTEMS At the time of my exam: CONSTITUTIONAL: Denies fever or chills. CARDIOVASCULAR: Denies chest pain, shortness of breath, orthopnea, PND or palpitations. RESPIRATORY: Denies cough. GASTROINTESTINAL: Denies abdominal pain, diarrhea, constipation, nausea or vomiting. MUSCULOSKELETAL: hip pain and bilateral leg pain NEUROLOGIC: Denies numbness, tingling, headacbe or weakness. ENDOCRINE: Denies fatigue, weight change, polydipsia or polyurina. GENITOURINARY: Denies burning, hematuria or urgency with micturation. HEMATOLOGIC: Denies history of anemia or bleeding. PHYSICAL EXAMINATION Blood pressure 170/80 5.94, afebrile, saturation 92% on room air CONSTITUTIONAL: No apparent distress. HEENT: Head is normocephalic. Pupils are equal, round. Sclerae anicteric. Mucous membranes of the mouth are moist. CHEST EXAMINATION: Lungs are clear to auscultation. No chest wall tenderness is noted on palpation or with deep breathing. HEART EXAMINATION: Regular rate and rhythm. S1, S2 heard. Systolic ejection mur mur noted. ABDOMEN: Soft, nontender. Positive bowel sounds. EXTREMITIES: 2+ peripheral pulses, 1+ pedal edema. NEUROLOGIC EXAMINATION: Patient is awake, alert and oriented to person and place. ASSESSMENT Elevated troponin, patient without chest pain, however NSTEMI not excluded at this time Fall at home Multiple fractures PLAN We will obtain echocardiogram and maximize medical therapy at this time. Continue aspirin, statin, beta bernard and lisinopril. Further recommendations based on clinical course. Nurse Practitioner note has been reviewed, I agree with a documented findings and plan of care. Patient was seen and examined. Past Medical History Past Medical History: Unable to Obtain Past Surgical History: Unable to Obtain Past Anesthesia/Blood Transfusion Reactions: Unable to Obtain Past Psychological History: Unable to Obtain - Past Family History Family Family Medical History: Unable to Obtain Medications and Allergies Home Medications Medication Instructions Recorded Confirmed Type Atorvastatin [Lipitor] 10 mg PO HS 03/14/21 03/14/21 History Buprenorphine [Butrans 20 MCG/HOUR] 1 patch TRANSDERM SA 03/14/21 03/14/21 History Cholecalciferol [Vitamin D3 (25 50 mcg PO DAILY 03/14/21 03/14/21 History Mcg = 1000 Iu)] Cyanocobalamin (Vitamin B-12) 1,000 mcg PO DAILY 03/14/21 03/14/21 History [Vitamin B-12] Labetalol [Trandate] 100 mg PO BID 03/14/21 03/14/21 History Lisinopril [Zestril] 10 mg PO DAILY 03/14/21 03/14/21 History Lotrimin Jock Itch [place] 1 applic TOPICAL DAILY PRN 03/14/21 03/14/21 History Naloxone HCl [Narcan] 4 mg NASAL DAILY PRN 03/14/21 03/14/21 History Ondansetron [Zofran ODT] 4 mg PO BID PRN 03/14/21 03/14/21 History Prostagenix 1 cap PO TID 03/14/21 03/14/21 History Rivaroxaban [Xarelto] 2.5 mg PO AC-BID 03/14/21 03/14/21 History Tamsulosin HCl [Flomax] 0.8 mg PO HS 03/14/21 03/14/21 History cloNIDine HCL 0.1 mg PO AC-BID 03/14/21 03/14/21 History oxyCODONE HCL [oxyCODONE HCL (IR)] 20 mg PO QID 03/14/21 03/14/21 History Allergies Allergy/AdvReac Type Severity Reaction Status Date / Time No Known Allergies Allergy Verified 03/14/21 17:47 Physical Exam Vitals: Vital Signs Temp Pulse Resp BP Pulse Ox 03/15/21 07:26 94 17 170/85 98 03/15/21 03:20 90 17 147/69 95 03/14/21 23:06 107 H 16 168/99 96 03/14/21 20:12 105 H 17 154/98 100 03/14/21 17:36 101 H 20 154/98 96 03/14/21 17:00 94 18 205/107 92 L 03/14/21 15:11 68 16 164/104 93 L 03/14/21 12:38 98.9 F 94 20 198/112 94 L Intake and Output 03/14/21 03/15/21 03/15/21 22:59 06:59 14:59 Output Total 300 Balance -300 Output: Urine 300 Uretheral (Levy) 300 Results 03/15/21 07:13 03/15/21 07:13 Cardiac Enzymes 03/14/21 03/14/21 03/14/21 Range/Units 12:48 12:48 21:31 AST 37 (17-59) U/L Troponin I 1.060 H* 1.100 H* (0.000-0.034) ng/mL 03/15/21 Range/Units 00:00 AST (17-59) U/L Troponin I 1.120 H* (0.000-0.034) ng/mL Coagulation 03/14/21 Range/Units 12:48 PT 11.9 (9.0-12.0) sec APTT 24.4 (22.0-30.0) sec CBC 03/14/21 03/15/21 Range/Units 12:48 07:13 WBC 22.3 H 17.1 H (3.8-10.6) k/uL RBC 3.43 L 3.16 L (4.30-5.90) m/uL Hgb 11.2 L 10.4 L (13.0-17.5) gm/dL Hct 33.3 L 31.4 L (39.0-53.0) % Plt Count 180 122 L (150-450) k/uL Comprehensive Metabolic Panel 03/14/21 03/15/21 Range/Units 12:48 07:13 Sodium 133 L 135 L (137-145) mmol/L Potassium 3.1 L 3.4 L (3.5-5.1) mmol/L Chloride 104 106 (98-107) mmol/L Carbon Dioxide 22 22 (22-30) mmol/L BUN 16 22 H (9-20) mg/dL Creatinine 0.47 L 0.63 L (0.66-1.25) mg/dL Glucose 176 H 139 H (74-99) mg/dL Calcium 8.8 9.2 (8.4-10.2) mg/dL AST 37 (17-59) U/L ALT 28 (4-49) U/L Alkaline Phosphatase 82 (38-126) U/L Total Protein 5.8 L (6.3-8.2) g/dL Albumin 3.3 L (3.5-5.0) g/dL Current Medications Generic Name Dose Route Start Last Admin Trade Name Freq PRN Reason Stop Dose Admin Acetaminophen 650 mg 03/14/21 17:58 Acetaminophen Tab 325 Mg Tab PO Q6HR PRN Mild Pain or Fever > 100.5 Aspirin 81 mg 03/15/21 09:00 Aspirin 81 Mg PO DAILY [facility] Atorvastatin Calcium 10 mg 03/15/21 21:00 Atorvastatin 10 Mg Tab PO HS LIZZY Clonidine 0.1 mg 03/15/21 07:30 Clonidine Hcl 0.1 Mg Tab PO AC-BID LIZZY Hydromorphone HCl 0.5 mg 03/14/21 17:58 03/15/21 00:19 Hydromorphone 0.5 Mg/0.5 Ml Syringe IVP 0.5 mg Q3HR PRN Administration Moderate Pain Labetalol HCl 100 mg 03/14/21 23:30 03/15/21 00:39 Labetalol 100 Mg Tab PO 100 mg BID LIZZY Administration Lisinopril 10 mg 03/15/21 09:00 Lisinopril 10 Mg Tab PO DAILY LIZZY Naloxone HCl 0.2 mg 03/14/21 17:58 Naloxone 0.4 Mg/Ml 1 Ml Vial IV Q2M PRN Opioid Reversal Oxycodone HCl 20 mg 03/15/21 09:00 Oxycodone Hcl 5 Mg Tab PO QID LIZZY Tamsulosin HCl 0.8 mg 03/15/21 21:00 Tamsulosin 0.4 Mg Cap.Er.24h PO HS [facility] Intake and Output 03/14/21 03/15/21 03/15/21 22:59 06:59 14:59 Output Total 300 Balance -300 Output: Urine 300 Uretheral (Levy) 300 03/15/21 07:13 03/15/21 07:13
--- NOTE | 2021-03-15 13:21 | P.DS ---
Providers Date of admission: 03/14/21 17:58 Expected date of discharge: 03/15/21 Attending physician: Evy Billingsley DO Consults: 03/14/21 18:01 Consult Physician Routine Consulting Provider: Evy Billingsley Consult Reason/Comments: medical Management Do you want consulting provider notified?: Yes Consult Physician Routine Consulting Provider: Johnathan Arroyo Consult Reason/Comments: trop elevated Do you want consulting provider notified?: Yes 03/15/21 11:21 Consult Physician Routine Consulting Provider: Robin Penaloza Consult Reason/Comments: Eval C-spine Do you want consulting provider notified?: Yes 03/15/21 11:54 Consult Physician Routine Consulting Provider: John Hayes Consult Reason/Comments: known Do you want consulting provider notified?: Already Contacted Primary care physician: Jose Irwin MD Hospital Course: Discharge Diagnosis: NSTEMI Ischemic cardiomyopathy Left intertrochanteric hip fracture Right lateral tibial plateau fracture Right acetabular fracture Fecal impaction C1 to ligamentous injury T6 compression fracture Hypokalemia Hypertension Dyslipidemia Hospital Course: 85-year-old male with a history of hypertension, dyslipidemia, coronary artery disease who presented to the [facility] emergency department after a fall at home. In the ER he underwent an extensive radiological evaluation which demonstrated a displaced right gastric tabular fracture, a left femoral neck fracture, fecal impaction, right tibial plateau fracture, and right frontal microvascular changes. He was also found to have elevated troponin. He underwent an echocardiogram which showed a depressed ejection fraction 35-40%. and realize that he has had some cardiac injury and that any operative repair would be high risk. They also met with orthopedic surgery who recommended nonoperative treatment due to his high risk nature. They have elected to sign on with [facility] and will be discharged on hospice. Case discussed with Dr. Penaloza who recommended Hard collar for transport and when out of bed. Orders written and collar placed. D/W hospice nurse that he needs c- spine precautions if up and out of bed and ideally soft collar if patient agreeable. Patient seen and examined at bedside present. No current pain, no history of neck injury. No nasuea, no vomiting. He reports pain with movements. Vital signs reviewed and stable. General: non toxic, no distress, appears at stated age, temporal wasting, cachexia Derm: warm, dry Head: atraumatic, normocephalic, symmetric Eyes: EOMI, no lid lag, anicteric sclera Mouth: no lip lesion, mucus membranes dry Cardiovascular: S1S2 reg, no murmur, positive posterior tibial pulse bilateral, Lungs: Decreased bs bilateral, no rhonchi, no rales , no accessory muscle use Abdominal: soft, nontender to palpation, no guarding, no appreciable organomegaly Ext: + gross muscle atrophy, no edema, no contractures Neuro: pain if he attempts to move bilateral lower extremities, no pain with moving neck Psych: Alert, remembers falling, A total of 55 minutes of time were spent preparing this complex discharge summary . Patient Condition at Discharge: Stable Plan - Discharge Summary New Discharge Prescriptions: New LORazepam [Ativan] 0.5 mg PO TID 3 Days #9 tab MORPHINE ORAL RAFAEL CONC 20mg/mL [Roxanol Oral Soln Conc 20MG/ML] 10 mg PO Q4H PRN #120 ml PRN Reason: Pain Continue Lisinopril [Zestril] 10 mg PO DAILY Labetalol [Trandate] 100 mg PO BID Atorvastatin [Lipitor] 10 mg PO HS Prostagenix 1 cap PO TID Lotrimin Jock Itch [place] 1 applic TOPICAL DAILY PRN PRN Reason: Itching cloNIDine HCL 0.1 mg PO AC-BID Tamsulosin HCl [Flomax] 0.8 mg PO HS oxyCODONE HCL [oxyCODONE HCL (IR)] 20 mg PO QID Changed Ondansetron [Zofran ODT] 4 mg PO Q6H PRN #120 tab PRN Reason: Nausea Discontinued Rivaroxaban [Xarelto] 2.5 mg PO AC-BID Buprenorphine [Butrans 20 MCG/HOUR] 1 patch TRANSDERM Cyanocobalamin (Vitamin B-12) [Vitamin B-12] 1,000 mcg PO DAILY Cholecalciferol [Vitamin D3 (25 Mcg = 1000 Iu)] 50 mcg PO DAILY Naloxone HCl [Narcan] 4 mg NASAL DAILY PRN PRN Reason: OVERDOSE Discharge Medication List Atorvastatin [Lipitor] 10 mg PO HS 03/14/21 [History] Labetalol [Trandate] 100 mg PO BID 03/14/21 [History] Lisinopril [Zestril] 10 mg PO DAILY 03/14/21 [History] Lotrimin Jock Itch [place] 1 applic TOPICAL DAILY PRN 03/14/21 [History] Prostagenix 1 cap PO TID 03/14/21 [History] Tamsulosin HCl [Flomax] 0.8 mg PO HS 03/14/21 [History] cloNIDine HCL 0.1 mg PO AC-BID 03/14/21 [History] oxyCODONE HCL [oxyCODONE HCL (IR)] 20 mg PO QID 03/14/21 [History] LORazepam [Ativan] 0.5 mg PO TID 3 Days #9 tab 03/15/21 [Rx] MORPHINE ORAL RAFAEL CONC 20mg/mL [Roxanol Oral Soln Conc 20MG/ML] 10 mg PO Q4H PRN #120 ml 03/15/21 [Rx] Ondansetron [Zofran ODT] 4 mg PO Q6H PRN #120 tab 03/15/21 [Rx] Follow up Appointment(s)/Referral(s): Jose Irwin MD [Primary Care Provider] - 1-2 days Discharge Disposition: HOME WITH HOSPICE
[2021-03-15] MEDS ORDERED: HYDROmorphone 1 MG/ML 1 ML SYRINGE IVP STA (14:09)
[2021-03-15 14:45] VITALS: TEMP 97.8
--- NOTE | 2021-03-15 15:06 | P.PN ---
Progress Note - Text Progress Note Date: 03/15/21 Reviewed images for pt. Pt had a fall at home. He is normally bed bound. There is C1-2 instability that is noted with translation of lateral masses C1 on C2, there is no fracture that can be noted and no significant or severe stenosis. Anterior articulation of C1-2 remains stable at this time and O-C1 joints appear stable. At this time the patient has multiple other fractures including acetabular, IT and tibial plateau and due to his current medical state and medical state he has been made hospice as family does not want any surgical interventions. I would recommend a hard collar for transport of the patient home to his hospice bed, then for comfort they could switch to a soft collar but would recommend spine precautions with movement and the hard collar with any transfers. Discussed with primary team and they agree.
[2021-03-15 15:13] VITALS: BP 152/85; PULSE 94
--- NOTE | 2021-03-15 17:13 | P.PN ---
Progress Note - Text Progress Note Date: 03/15/21 Agree with orthopaedic H&P written by Scott Tipton PA-C. I had a long discussion with Mr. Lofton and his at bedside. We discussed the mechanism of his injury, his current injuries, his baseline functional level and his goals for treatment. The patient and his understand his orthopaedic injuries including a comminuted left pertrochanteric hip with extension into the femoral neck, a right acetabular fracture, a left tibial plateau fracture and an upper cervical spine fracture (being managed by Dr. Penaloza). We discussed both operative and non-operative treatment. Both Mr. Lofton and his understand the risks with both. Due to his multiple medical problems and severity of his injuries, both the patient and his would like to manage his injuries non-operatively and place him on hospice. Mr. Lofton stated explicitly to me that he didn't want surgery. I agree with him that he is at a high risk for a complication with surgery and that his ultimate outcome may not change with surgery. The family understands the risk for decline and with non- operative treatment. They would like to pursue hospice at this time which I agree with and respect. If the family would like to re-visit surgery for palliative reasons, I would be happy to discuss further with them, particularly in regards to the left hip.
[2021-03-15] MEDS ORDERED: ATORVASTATIN 10 MG TAB PO SCH (21:00)
[2021-03-15] MEDS ORDERED: TAMSULOSIN 0.4 MG CAP.ER.24H PO SCH (21:00)
== END 2021-03-15 15:34 | disposition hospice, home (50) | DRG 543 ==
LOC: EC 12:34 → 3SCARD 17:58
PROVIDERS: ADMIT Internal Medicine; ATTEND Internal Medicine
DX: M48.54XA Collapsed vertebra, not elsewhere classified, thoracic region, initial encounter for fracture (principal); S82.141A Displaced bicondylar fracture of right tibia, initial encounter for closed fracture; I51.81 Takotsubo syndrome; S13.4XXA Sprain of ligaments of cervical spine, initial encounter; S72.142A Displaced intertrochanteric fracture of left femur, initial encounter for closed fracture; S32.401A Unspecified fracture of right acetabulum, initial encounter for closed fracture; M53.2X2 Spinal instabilities, cervical region; Z20.822 Contact with and (suspected) exposure to COVID-19; R41.82 Altered mental status, unspecified; Z66 Do not resuscitate; B35.6 Tinea cruris; D72.829 Elevated white blood cell count, unspecified; E78.5 Hyperlipidemia, unspecified; E87.6 Hypokalemia; I10 Essential (primary) hypertension; I25.10 Atherosclerotic heart disease of native coronary artery without angina pectoris; I25.2 Old myocardial infarction; I25.5 Ischemic cardiomyopathy; I49.3 Ventricular premature depolarization; K56.41 Fecal impaction; W06.XXXA Fall from bed, initial encounter; Y92.003 Bedroom of unspecified non-institutional (private) residence as the place of occurrence of the external cause; Z74.01 Bed confinement status; Z79.01 Long term (current) use of anticoagulants; Z79.899 Other long term (current) drug therapy
CPT/HCPCS: 36415; 70450; 70496; 70498; 71045; 72126; 72170; 73501; 73502; 80048; 80053; 82550; 83735; 84484; 85025; 85610; 85730; 87635; 93005; 93306; 96361; 96374; 96375; 96376; 99291